=== PATIENT | male | born 1940 | race Caucasian/White ===

== ENCOUNTER → 2024-09-07 14:18 | Outpatient (CLI) | payer MEDICARE, SELFPAY ==
--- NOTE | 2024-09-07 14:30 | DI.CT.S_ITS ---
PROCEDURE: CT HIP RIGHT WITHOUT CON INDICATIONS: HIP PAIN TECHNIQUE: Noncontrast 3 mm axial sections acquired through the bony pelvis. Additional 3 mm axial sections acquired through the symptomatic hip joint, with coronal and sagittal reformats. COMPARISON: None. FINDINGS: Image quality: Excellent. Bones: Moderate bilateral lower lumbar facet arthropathy. Mild degenerative changes of bilateral sacroiliac joint. The sacrum is intact. No acute fracture or dislocation. Mild degenerative changes of the right hip. Punctate calcification of the right greater trochanter, representing hydroxyapatite deposition disease. Soft tissues: Radiation seeds seen in the prostate. Mild wall thickening of the proximal and mid sigmoid colon, which may be secondary to underdistention versus mild colitis. Superimposed mild colonic diverticulosis. No pelvic lymphadenopathy. Mild calcification of the distal abdominal aorta. Large right iliopsoas bursitis. IMPRESSION: 1. Mild degenerative changes of the right hip. 2. Mild hydroxyapatite deposition disease about the right greater trochanter. 3. Large right iliopsoas bursitis. 4. Underdistention versus mild colitis of the sigmoid colon. Dictated by: Layla Coronado M.D. on 09/08/2024 at 15:47 Approved by: Layla Coronado M.D. on 09/08/2024 at 15:55
--- NOTE | 2024-09-07 15:11 | EKG_ITS ---
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
== END ==
PROVIDERS: Referring Provider Student in an Organized Health Care Education/Training Program; Visit Provider Student in an Organized Health Care Education/Training Program
DX: M11.051 Hydroxyapatite deposition disease, right hip (principal); M71.551 Other bursitis, not elsewhere classified, right hip; M25.551 Pain in right hip; I48.0 Paroxysmal atrial fibrillation
CPT/HCPCS: 73700; 93005

== ENCOUNTER → 2024-09-15 11:56 | Outpatient (CLI) | payer MEDICARE, SELFPAY ==
--- NOTE | 2024-09-15 11:59 | EKG_ITS ---
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
== END ==
LOC: RESP 11:58
PROVIDERS: PCP Internal Medicine; Referring Provider Nurse Practitioner; Visit Provider Nurse Practitioner
DX: I48.0 Paroxysmal atrial fibrillation (principal)
CPT/HCPCS: 93005

== ENCOUNTER 2024-11-21 16:56 | Emergency (ER) | payer MEDICARE, SELFPAY ==
[2024-11-21] VITALS (13 sets, daily range): BP systolic 136–166; BP diastolic 63–85; PULSE 60–78; RESP 11–18; TEMP 36.4; O2SAT 97–100; BMI 23.6
--- NOTE | 2024-11-21 16:58 | DI.CT.S_ITS ---
PROCEDURE: CT FACIAL BONES WO CON INDICATIONS: slip and fall on face with thinner and bridge of nose lac. TECHNIQUE: Noncontrast 2.5 mm thick axial images acquired from the mandible through the frontal sinuses, with coronal and sagittal reformatting. For radiation dose reduction, the following was used: automated exposure control, adjustment of mA and/or kV according to patient size. COMPARISON: None. FINDINGS: Image quality: Excellent. Bones and teeth: Orbital castaneda are intact. Sinus castaneda show no fracture or deformity. Minimally displaced comminuted fracture of the nasal bridge. Mild displaced fracture of the inferior nasal spine. Mild frothy opacities along the left middle turbinate. Visualized portions of the mandible demonstrate no fractures or subluxation. Zygomatic arches are intact. Pterygoid plates are intact. Visualized portions of the skull base and auditory canals are intact. Sinuses: Paranasal sinuses are aerated, without fluid levels, mucosal thickening, or mucoceles. Mastoid air cells are aerated. Soft tissues: No edema, masses, or fluid collections. No enlarged lymph nodes. No soft tissue lacerations or debris. Vascular: Visualized vascular structures appear normal in the absence of contrast. Bony vascular foramina and canals are intact. IMPRESSION: Complete fracture of the nasal bridge Mildly displaced fracture of the maxillary nasal spine. Dictated by: Jairo Downs M.D. on 11/21/2024 at 17:12 Approved by: Jairo Downs M.D. on 11/21/2024 at 17:14
--- NOTE | 2024-11-21 16:58 | DI.CT.S_ITS ---
PROCEDURE: CT CERVICAL SPINE WO CON INDICATIONS: slip and fall on face with thinner and bridge of nose lac. TECHNIQUE: Noncontrast 3 mm thick sections acquired from the skull base to the T4 level. Sagittal and coronal reformats were then constructed. For radiation dose reduction, the following was used: automated exposure control, adjustment of mA and/or kV according to patient size. COMPARISON: None. FINDINGS: Image quality: Excellent. Bones: No fractures or dislocations. Visualized superior ribs are intact. Moderate spondylitic changes of the visualized spine with facet arthrosis and uncovertebral hypertrophy. Soft tissues: Prevertebral soft tissues are normal in thickness. No paravertebral hematomas. No apical pneumothoraces. IMPRESSION: No displaced fracture or traumatic subluxation. Dictated by: Jairo Downs M.D. on 11/21/2024 at 17:14 Approved by: Jiaro Downs M.D. on 11/21/2024 at 17:16
--- NOTE | 2024-11-21 16:58 | DI.CT.S_ITS ---
PROCEDURE: CT HEAD/BRAIN WO CON INDICATIONS: slip and fall on face with thinner and bridge of nose lac. TECHNIQUE: Noncontrast 4.5 mm thick angled axial sections acquired from the foramen magnum to the vertex, with coronal and sagittal reformats. For radiation dose reduction, the following was used: automated exposure control, adjustment of mA and/or kV according to patient size. COMPARISON: [facility], CT, CT FACIAL BONES WO CON, 11/21/2024, 17:15. FINDINGS: Image quality: Diagnostic. CSF spaces: Basal cisterns are patent. No extra-axial fluid collections. Ventricles are normal in size and shape. Diffuse expansion CSF containing spaces. Brain: No midline shift. No intracranial mass effect or hemorrhage. Mata- white matter interface is normal. Diffuse parenchymal volume loss with expansion CSF containing spaces. Skull and face: Comminuted fracture of the nasal septum. Mildly displaced fracture of the maxillary spine better seen on CT face. Sinuses: Visualized sinuses and mastoids are clear. IMPRESSION: No acute intracranial pathology. Mildly displaced fractures of the nasal bridge and maxillary spine. Dictated by: Jairo Downs M.D. on 11/21/2024 at 17:03 Approved by: Jairo Downs M.D. on 11/21/2024 at 17:11
--- NOTE | 2024-11-21 17:01 | DI.RAD.S_ITS ---
PROCEDURE: XR CHEST 1V INDICATIONS: fall on thinners TECHNIQUE: One view of the chest was acquired. COMPARISON: None. FINDINGS: Surgical changes and devices: Cardiac monitoring device with a left chest wall with leads in the right atrium right ventricle. Lungs and pleura: Lungs are clear. No pleural effusions or pneumothorax. Mediastinum: Mediastinal contours appear normal. Heart size is normal. Bones and chest wall: No suspicious bony lesions. Overlying soft tissues appear unremarkable. IMPRESSION: No acute cardiopulmonary abnormality is seen. Dictated by: Jairo Downs M.D. on 11/21/2024 at 16:43 Approved by: Jairo Downs M.D. on 11/21/2024 at 16:44
--- NOTE | 2024-11-21 17:11 | EKG_ITS ---
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
[2024-11-21 17:26] LABS: Add Manual Diff / Slide Review NO; Hematocrit 39.7 % (41-53); Hemoglobin 13.9 g/dL (13.5-17.5); Lymphocytes Absolute Auto 800 /uL (1100-4500); Mean Corpuscular HGB Conc 34.9 % (30-36); Mean Corpuscular Hemoglobin 31.8 PG (26-34); Mean Corpuscular Volume 91.2 fL (80-100); Platelet Count 204 X10^3/uL (150-400)
[2024-11-21 17:29] LABS: Alanine Aminotransferase 18 IU/L (<50); Albumin 4.5 g/dL (3.5-5.0); Albumin Globulin Ratio 1.5 (1.0-2.8); Alkaline Phosphatase 88 U/L (38-126); Blood Urea Nitrogen 24 mg/dL (9-20); Calcium 9.4 mg/dL (8.4-10.2); Carbon Dioxide 23 mmol/L (22-32); Chloride 103 mmol/L (98-107); Estimated Glomerular Filt Rate > 60 mL/min (>60); Globulin 3.1 g/dL (1.7-4.1); Glucose 119 mg/dL (70-99); HEMOLYSIS 16 (0-50); Potassium 4.2 mmol/L (3.4-5.1); Sodium 135 mmol/L (137-145); Total Protein 7.6 g/dL (6.3-8.2)
--- NOTE | 2024-11-21 18:04 | ED_ITS ---
HPI - General Adult General Chief complaint: Trauma Stated complaint: Fall on thinners Time Seen by Provider: 11/21/24 17:59 Source: patient and EMS Mode of arrival: EMS History of Present Illness HPI narrative: 84-year-old male with history of atrial fibrillation/flutter awaiting upcoming Watchman procedure but still taking Eliquis oral anticoagulation, was plugging in his [employer] car to [employer] station in [place] about 5:00 p.m. today, tripped on a curb, fell forward onto his face, no loss of consciousness, has nose laceration and bleeding, cervical collar placed by EMS for transport, no focal neuro symptoms, no loss of consciousness, no nausea or vomiting. Related Data Previous Rx's ?Medication ?Instructions ?Recorded cephalexin 500 mg capsule 500 mg PO QID 7 days #28 cap s 11/21/24 cephalexin 500 mg capsule 500 mg PO QID 7 days #28 cap s 11/21/24 hydrocodone 5 mg-acetaminophen 325 1 tab PO Q6H PRN pa in #10 tabs 11/21/24 mg tablet hydrocodone 5 mg-acetaminophen 325 1 tab PO Q6H PRN pa in #14 tabs 11/21/24 mg tablet hydrocodone 5 mg-acetaminophen 325 1 tab PO Q6H PRN pa in #14 tabs 11/21/24 mg tablet Allergies Allergy/AdvReac Type Severity Reaction Status Date / Time Iodinated Contrast Media Allergy Severe Anaphylaxis Verified 11/21/24 17:15 Patient History Social History Smoking Status: Never smoker Smoking Status: Never smoker Alcohol type: wine Exam Narrative Exam Narrative: GENERAL: Well-developed patient, in mild distress. HEAD: Atraumatic. Normocephalic. EYES: Pupils equal round and reactive. Extraocular motions intact. No scleral icterus. No injection or drainage. ENT: Laceration 1.5 cm horizontal over nasal bridge, no visible bony fragments. Smaller abrasion with 3 mm wider suturable laceration distal right nasal ala not through and through. Has dried blood nasal a daily. No septal hematomas obvious either side. Grossly non deviated, apparently has been broken in the past. NECK: Trachea midline. Non tender CARDIOVASCULAR: Regular rate and rhythm without murmurs, gallops, or rubs. RESPIRATORY: Clear to auscultation. Breath sounds equal bilaterally. No wheezes, rales, or rhonchi. GASTROINTESTINAL: Abdomen soft, non-tender, nondistended. EXTREMITIES: No edema or joint tenderness. Left anterior foreleg small hematoma, no suturable laceration or abrasion. No gross deformity. BACK: Nontender without deformity or crepitance. No flank tenderness. NEURO: AOx3. Motor functions grossly nonfocal. SKIN: No rash or erythema of visible areas Initial Vital Signs Initial Vital Signs: Vital Signs Temperature 97.5 F L 11/21/24 17:15 Pulse Rate 71 11/21/24 17:15 Respiratory Rate 18 11/21/24 17:15 Blood Pressure 166/85 H 11/21/24 17:15 Pulse Oximetry 98 11/21/24 17:15 Oxygen Delivery Method Room Air 11/21/24 17:15 Procedures Laceration Repair Laceration 1: Time of procedure: 21:15 Site: face Size (cm): 2 Description: irregular (T shapedlaceration over nasal bridge, longer stem horizontal) Depth: simple, single layer Local Anesthetic: lidocaine 1% and with epi Amount of anesthesia used (mL): 3 Skin layer closed with: nylon Skin layer suture size: 5-0 Number of sutures: 6 Technique: simple, interrupted (5 [id number], one corner type stitch) Course Orders Ordered: Discontinued Medications Hydrocodone Bitart/Acetaminophen (Hydrocodone/Acet 5/325 Prepack) 1 bottle MISC DIRECTED ONE Stop: 11/21/24 21:22 Last Admin: 11/21/24 21:25 Dose: 1 bottle Documented By: MARCELLO Cephalexin HCl (Cephalexin 250 Mg Capsule) 500 mg PO NOW ONE Stop: 11/21/24 19:13 Last Admin: 11/21/24 19:38 Dose: 500 mg Documented By: MARCELLO Diphtheria/Tetanus/Acell Pertussis (Tet,Diph,Pertuss(Acell),Vac/Pf 0.5 Ml Syringe) 0.5 ml IM .ONCE ONE Stop: 11/21/24 19:12 Last Admin: 11/21/24 19:38 Dose: 0.5 ml Documented By: MARCELLO Lidocaine/Epinephrine (Lidocaine 1% W/Epi 10ml) 1 ml SUBCUT NOW ONE Stop: 11/21/24 19:31 Last Admin: 11/21/24 19:39 Dose: 1 ml Documented By: MARCELLO Vital Signs Vital signs: Vital Signs - 8 hr 11/21/24 19:30 11/21/24 19:32 11/21/24 19:32 Pulse Rate 60 60 Respiratory Rate 13 13 Blood Pressure 151/70 H Pulse Oximetry 98 98 11/21/24 20:00 11/21/24 20:00 11/21/24 20:35 Pulse Rate 60 69 Respiratory Rate 13 Blood Pressure 137/63 Pulse Oximetry 100 97 11/21/24 20:37 11/21/24 20:37 11/21/24 21:00 Pulse Rate 61 Respiratory Rate 11 L Blood Pressure 149/85 H 156/72 H Pulse Oximetry 99 11/21/24 21:00 Pulse Rate 60 Respiratory Rate 13 Blood Pressure Pulse Oximetry 99 Medical Decision Making Lab Data 11/21/24 17:10 11/21/24 17:10 Labs: Lab Results 11/21/24 Range/Units 17:10 WBC 11.3 H (4.5-11.0) X10^3/uL RBC 4.36 L (4.5-5.9) X10^6/uL Hgb 13.9 (13.5-17.5) g/dL Hct 39.7 L (41-53) % MCV 91.2 (80-100) fL MCH 31.8 (26-34) PG MCHC 34.9 (30-36) % RDW 14.0 (11.6-14.8) % Plt Count 204 (150-400) X10^3/uL Neut % (Auto) 88.7 H (50-75) % Lymph % (Auto) 6.9 L (25-40) % [place] % (Auto) 4.3 (3-14) % Eos % (Auto) 0.0 L (2-4) % Baso % (Auto) 0.1 (0-2) % Neut # (Auto) 38094 H (7108-8854) /uL Lymph # (Auto) 800 L (2723-5733) /uL [place] # (Auto) 500 (0-900) /uL Eos # (Auto) 0 (0-450) /uL Baso # (Auto) 0 (0-100) /uL Sodium 135 L (137-145) mmol/L Potassium 4.2 (3.4-5.1) mmol/L Chloride 103 (98-107) mmol/L Carbon Dioxide 23 (22-32) mmol/L BUN 24 H (9-20) mg/dL Creatinine 0.91 (0.66-1.25) mg/dL Estimated GFR > 60 (>60) mL/min BUN/Creatinine Ratio 26.4 H (6-22) Glucose 119 H (70-99) mg/dL Calcium 9.4 (8.4-10.2) mg/dL Total Bilirubin 0.7 (0.2-1.3) mg/dL AST 26 (17-59) IU/L ALT 18 (<50) IU/L Alkaline Phosphatase 88 (38-126) U/L Total Protein 7.6 (6.3-8.2) g/dL Albumin 4.5 (3.5-5.0) g/dL Globulin 3.1 (1.7-4.1) g/dL Albumin/Globulin Ratio 1.5 (1.0-2.8) Imaging Data CT scan - head: Radiologist's Impression: [address] [address] [address] Scan Report Signed Patient: Mikel Barajas MR#: [id number] : 1940 Acct:[id number] Age/Sex: 84 / M Date of Service: 11/21/24 Loc: ED Accession Number: [id number] Procedure: CT head/brain wo con Ordering Provider: Santiago Parmar D.O. PROCEDURE: CT HEAD/BRAIN WO CON INDICATIONS: slip and fall on face with thinner and bridge of nose lac. TECHNIQUE: Noncontrast 4.5 mm thick angled axial sections acquired from the foramen magnum to the vertex, with coronal and sagittal reformats. For radiation dose reduction, the following was used: automated exposure control, adjustment of mA and/or kV according to patient size. COMPARISON: [facility], CT, CT FACIAL BONES WO CON, 11/21/2024, 17:15. FINDINGS: Image quality: Diagnostic. CSF spaces: Basal cisterns are patent. No extra-axial fluid collections. Ventricles are normal in size and shape. Diffuse expansion CSF containing spaces. Brain: No midline shift. No intracranial mass effect or hemorrhage. Mata- white matter interface is normal. Diffuse parenchymal volume loss with expansion CSF containing spaces. Skull and face: Comminuted fracture of the nasal septum. Mildly displaced fracture of the maxillary spine better seen on CT face. Sinuses: Visualized sinuses and mastoids are clear. IMPRESSION: No acute intracranial pathology. Mildly displaced fractures of the nasal bridge and maxillary spine. Dictated by: Jairo Downs M.D. on 11/21/2024 at 17:03 Approved by: Jairo Downs M.D. on 11/21/2024 at 17:11 Chest x-ray: Radiologist's Impression: [address] [address] XRay Report Signed Patient: Mikel Barajas MR#: [id number] : 1940 Acct:[id number] Age/Sex: 84 / M Date of Service: 11/21/24 Loc: ED Accession Number: [id number] Procedure: XR chest 1V Ordering Provider: Santiago Parmar D.O. PROCEDURE: XR CHEST 1V INDICATIONS: fall on thinners TECHNIQUE: One view of the chest was acquired. COMPARISON: None. FINDINGS: Surgical changes and devices: Cardiac monitoring device with a left chest wall with leads in the right atrium right ventricle. Lungs and pleura: Lungs are clear. No pleural effusions or pneumothorax. Mediastinum: Mediastinal contours appear normal. Heart size is normal. Bones and chest wall: No suspicious bony lesions. Overlying soft tissues appear unremarkable. IMPRESSION: No acute cardiopulmonary abnormality is seen. Dictated by: Jairo Downs M.D. on 11/21/2024 at 16:43 Approved by: Jairo Downs M.D. on 11/21/2024 at 16:44 CT - cervical spine: Radiologist's Impression: [address] [address] [address] Scan Report Signed Patient: Mikel Barajas MR#: [id number] : 1940 Acct:[id number] Age/Sex: 84 / M Date of Service: 11/21/24 Loc: ED Accession Number: [id number] Procedure: CT cervical spine wo con Ordering Provider: Santiago Parmar D.O. PROCEDURE: CT CERVICAL SPINE WO CON INDICATIONS: slip and fall on face with thinner and bridge of nose lac. TECHNIQUE: Noncontrast 3 mm thick sections acquired from the skull base to the T4 level. Sagittal and coronal reformats were then constructed. For radiation dose reduction, the following was used: automated exposure control, adjustment of mA and/or kV according to patient size. COMPARISON: None. FINDINGS: Image quality: Excellent. Bones: No fractures or dislocations. Visualized superior ribs are intact. Moderate spondylitic changes of the visualized spine with facet arthrosis and uncovertebral hypertrophy. Soft tissues: Prevertebral soft tissues are normal in thickness. No paravertebral hematomas. No apical pneumothoraces. IMPRESSION: No displaced fracture or traumatic subluxation. Dictated by: Jairo Downs M.D. on 11/21/2024 at 17:14 Approved by: Jairo Downs M.D. on 11/21/2024 at 17:16 CT face noncontrast: Radiologist's Impression: [place] [address] CT Scan Report Signed Patient: Mikel Barajas MR#: [id number] : 1940 Acct:[id number] Age/Sex: 84 / M Date of Service: 11/21/24 Loc: ED Accession Number: [id number] Procedure: CT facial bones wo con Ordering Provider: Santiago Parmar D.O. PROCEDURE: CT FACIAL BONES WO CON INDICATIONS: slip and fall on face with thinner and bridge of nose lac. TECHNIQUE: Noncontrast 2.5 mm thick axial images acquired from the mandible through the frontal sinuses, with coronal and sagittal reformatting. For radiation dose reduction, the following was used: automated exposure control, adjustment of mA and/or kV according to patient size. COMPARISON: None. FINDINGS: Image quality: Excellent. Bones and teeth: Orbital castaneda are intact. Sinus castaneda show no fracture or deformity. Minimally displaced comminuted fracture of the nasal bridge. Mild displaced fracture of the inferior nasal spine. Mild frothy opacities along the left middle turbinate. Visualized portions of the mandible demonstrate no fractures or subluxation. Zygomatic arches are intact. Pterygoid plates are intact. Visualized portions of the skull base and auditory canals are intact. Sinuses: Paranasal sinuses are aerated, without fluid levels, mucosal thickening, or mucoceles. Mastoid air cells are aerated. Soft tissues: No edema, masses, or fluid collections. No enlarged lymph nodes. No soft tissue lacerations or debris. Vascular: Visualized vascular structures appear normal in the absence of contrast. Bony vascular foramina and canals are intact. IMPRESSION: Complete fracture of the nasal bridge Mildly displaced fracture of the maxillary nasal spine. Dictated by: Jairo Downs M.D. on 11/21/2024 at 17:12 Approved by: Jairo Downs M.D. on 11/21/2024 at 17:14 [facility] Narrative Medical decision making narrative: 84-year-old male on Eliquis chronic anticoagulation due to atrial fibrillation, awaiting watchman's procedure to be done in [facility] next week, had ground level mechanical fall tripping, sustained laceration and bleeding to his nasal bridge, no loss of consciousness but on blood thinner medications. CT head, face, cervical spine ordered from triage. X-ray apparently ordered. Chest x-ray no acute changes. Left upper chest cardiac monitoring device. See radiology report. CT head no acute changes bony or brain. Nasal bridge fracture noted. See radiology report. CT face noncontrast, nasal bridge comminuted fracture again noted. See radiology report. CT cervical spine noncontrast, no spinal fracture dislocation changes described. See radiology report. No obvious septal hematoma on nasal internal exam. No obvious ongoing epistaxis. Seems to have bleeding external at site of laceration. See wound care closure note, larger laceration nasal bridge, distal right ala laceration single stitch. We will presumed open fracture, gave oral dose cephalexin. Tetanus was updated. Prescription for further cephalexin sent to pharmacy. Prescription sent to his [facility] pharmacy for hydrocodone/APAP, home pack given as well. He/family stated that they will follow up in the [facility], though local otolaryngology/ENT clinic contact information also provided if needed. 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 He will follow up in [facility] for otolaryngology consultation later this week. Discharged home with family. Return precautions discussed. Discharge Plan Departure Patient Disposition: Home Clinical Impression: Nasal bone fractures, Laceration of nose, Ground-level fall Activity Restrictions/Additional Instructions: Ground level mechanical type fall earlier this afternoon, still taking Eliquis blood thinner medications for history of atrial fibrillation/flutter awaiting Watchman procedure later this mid week, some bleeding from the nasal laceration area. CT head and cervical spine without obvious brain injuries or cervical fracture changes. CT head and CT face did show comminuted fracture of the nasal spine. On inspection that nasal mucosa did not have obvious hematoma, no drainage procedure indicated at this time. Sutures placed laceration. Presumed open fracture given proximity of laceration to the nasal bone fractures and comminution. Oral antibiotic cephalexin given, further prescription for cephalexin antibiotics sent to your pharmacy to hopefully help prevent wound/bone infection. Consider wound check later this week with Otolaryngology, contact information for on-call otolaryngology given. You will be following up with your cardiologists on Saturday for possible Watchman procedure, could consider otolaryngology consultation in that same area if available. Return earlier to this/nearest emergency department for any change worsening symptoms or any concerns prior. Prescriptions: New cephalexin 500 mg capsule 500 mg PO QID 7 Days Qty: 28 0RF hydrocodone-acetaminophen 5-325 mg tablet 1 tab PO Q6H PRN (Reason: pain) Qty: 10 0RF cephalexin 500 mg capsule 500 mg PO QID 7 Days Qty: 28 0RF hydrocodone-acetaminophen 5-325 mg tablet 1 tab PO Q6H PRN (Reason: pain) Qty: 14 0RF hydrocodone-acetaminophen 5-325 mg tablet 1 tab PO Q6H PRN (Reason: pain) Qty: 14 0RF Referrals: Darci Quijano MD [Physician, Ear, Nose, Throat] Stephanie Rivas MD [Primary Care Provider, Internal Medicine] Stand Alone Forms: Patient Portal/API
[2024-11-21] MEDS: TET,DIPH,PERTUSS(ACELL),VAC/PF 0.5 ML SYRINGE IM (19:38)
[2024-11-21] MEDS: LIDOCAINE 1% W/EPI 10ML SUBCUT (19:39)
== END 2024-11-21 21:42 | disposition home or self-care (01) ==
PROVIDERS: Family Medicine; Emergency Provider Emergency Medicine; PCP Internal Medicine
DX: S02.2XXA Fracture of nasal bones, initial encounter for closed fracture (principal); S01.21XA Laceration without foreign body of nose, initial encounter; W01.0XXA Fall on same level from slipping, tripping and stumbling without subsequent striking against object, initial encounter; Z79.01 Long term (current) use of anticoagulants; Z23 Encounter for immunization
CPT/HCPCS: 36415; 70450; 70486; 71045; 72125; 80053; 85025; 90471; 93005; 99284; 90715